=== PATIENT | female | born 1975 | race Caucasian/White ===

== ENCOUNTER → 2016-08-23 | Outpatient (CLI) | payer BC ==
[~2016-08-23] MED LIST: ACTICLATE150 MG PO; GLUCOPHAGE500 MG/TAB PO; HCTZ12.5TAB PO; LEXAPRO 10MG10 MG PO; LOPRESSOR 550 MG/TAB PO; MOTRIN 800800 MG/TAB PO; MULTIPLE VITAMI1 CAP PO; NEURONTIN300 MG/CAP PO; NEURONTIN600 MG/TAB PO; PERCOCET 325 MG1 TA2 PO; PRIL40 PO; VITAMIN D1000 IU PO; VOLTAREN 75 DR75 MG PO; ZOVIA 1/35E 351 TAB PO
== END ==
LOC: COL.RAD 08:03
DX: G89.21 Chronic pain due to trauma (principal)

== ENCOUNTER → 2017-07-04 | Outpatient (CLI) | payer BC | LOC: MC.RAD 06:59 | DX: Z12.31 Encounter for screening mammogram for malignant neoplasm of breast (principal) ==